=== PATIENT | male | born 1960 | race Caucasian/White ===

== ENCOUNTER 2016-11-01 16:06 | Emergency (ER) | payer SELFPAY ==
--- NOTE | 2016-11-01 19:19 | ED ORDER SUMMARY ---
..... Patient: ARGELIA FORD OrderSheet [facility] VisitID: [id number] [address] [place] [address] 56y, M Registration Date/Time: 11/01/2016 ORDER SHEET Weight: 83.9 kg (stated) Allergies: None GENERAL ORDERS: Topographical Drafter (Continuous) (Croup, Respiratory Distress) (16:20 11/01/2016 JBoardley R.N. per protocol) (16:20 JBoardley R.N.) Pulse oximeter (16:20 11/01/2016 JBoardley R.N. per protocol) (16:20 JBoardley R.N.) EKG - ER Stat (16:20 11/01/2016 JBoardley R.N. per protocol) (16:20 JBoardley R.N.) Vitals (16:20 11/01/2016 JBoardley R.N. per protocol) (16:20 JBoardley R.N.) Cardiac Panel Stat (16:31 11/01/2016 JBoardley R.N. per protocol) (Ack 16:32 NHouse ER Tech1) (16:36 JBoardley R.N.) BNP Urgent (16:31 11/01/2016 JBoardley R.N. per protocol) (Ack 16:32 NHouse ER Tech1) (16:36 JBoardley R.N.) MEDICATION ORDERS: IV FLUIDS: IV Saline Lock (16:20 11/01/2016 JBoardley R.N. per protocol) (Ack 16:20 JBoardley R.N.) (16:31 JBoardley R.N.) ORDER SHEET NOTES: [Electronically signed by Victoria Frazier R.N. (19:28 11/01/2016)] [Electronically signed by Coretta Mitchell MD (07:52 11/03/2016)] [Electronically locked/signed by Victoria Frazier R.N. (19:28 11/01/2016)]
--- NOTE | 2016-11-01 19:19 | ED CLINICAL REPORT ---
Clinical Report - Physicians/Mid Levels [facility] [address] [place] [address] 11/01/2016 16:07 [id number] Time Seen: 16:22. Arrived- By private vehicle. Historian- patient. HISTORY OF PRESENT ILLNESS Chief Complaint: DIZZINESS. Severity described as moderate at its maximum. When seen in the E.D., severity described as mild. Modifying factors- relieved by nothing. (Exertion does not worsen the symptoms.). Not worsened by anything. Not described as a sense of rotation, movement, falling or confusion. Not described as feeling off balance or weak all over. Described as feeling light-headed. This started several weeks ago and is still present. No nausea, vomiting, hearing loss, tinnitus or ear pain. (Patient states he's been feeling somewhat fatigued on and off for the last several weeks he has had occasional lightheaded spells and has had intermittent chest pressure separately from the spells. Patient states that symptoms seem worse over the last couple of days. The patient has a history of coronary artery disease and did have stents placed about a year and a half ago. Patient states that after the stents were placed, he felt much much better, and that things have gone smoothly since. Patient has just moved here from [place], and does not have a primary care physician yet. He is not currently having any chest discomfort, and feels slightly dizzy/lightheaded sitting in the bed. Patient states that his sense of feeling unwell was much worse prior to stents being placed.). (Patient has had no neurologic symptoms.). Similar symptoms previously: Worse. Recent medical care: Not recently seen/assessed. REVIEW OF SYSTEMS No headache, double vision, weakness, fainting episodes or head injury. No palpitations, numbness, fever, sore throat or cough. No difficulty breathing, abdominal pain, diarrhea, difficulty with urination or skin rash. No enlarged lymph nodes, chills or joint pain. No difficulty walking. The patient has had pressure-like, brief central chest pain. Has had similar symptoms of chest pain previously. No radiation, modifying factors or associated symptoms. All systems otherwise negative, except as recorded above. PAST HISTORY Problems: Congestive Heart Failure. Hypercholesterolemia. Hypertension. Additional Surgeries: Cardiac Stents. Medications: Plavix Oral. ASA. Atorvastatin Calcium Oral. Lisinopril Oral. Allergies: None. SOCIAL HISTORY Smoker- current status unknown. No alcohol use or drug use. ADDITIONAL NOTES The nursing notes have been reviewed. PHYSICAL EXAM Vital Signs: 11/01/2016 16:14 BP: 159/105. HR: 88. RR: 18. O2 saturation: 98%. Temp: 97.9 F. Pain level now: 0/10. Have been reviewed. Appearance: Alert. No acute distress. Eyes: Pupils equal, round and reactive to light. No nystagmus. Extraocular movements normal. ENT: Normal ENT inspection. Moist mucous membranes. Neck: Normal inspection. CVS: Normal heart rate and rhythm. Heart sounds normal. Pulses normal. Respiratory: No respiratory distress. Breath sounds normal. Abdomen: Soft and nontender. Back: Normal inspection. Skin: Skin warm and dry. Normal skin color. No rash. Normal skin turgor. Extremities: Extremities exhibit normal ROM. No lower extremity edema. Neuro: Alert. Mood/affect normal. Speech normal. Cranial nerves normal (as tested). No cerebellar findings. No motor deficit. (Patient is grossly oriented. He walks without difficulty, and is not ataxic in his movements.). LABS, X-RAYS, AND EKG EKG: EKG time: (1625). No acute process. No acute ischemia. Normal sinus rhythm. Rate: 87. Ectopic beats. Premature ventricular contractions. Normal P waves. Normal ALLA. Normal QRS complex. Normal axis. Normal ST and T waves. Prolonged QT. Prior EKG unavailable. The study has been interpreted contemporaneously by me. The study has been independently viewed by me. The EKG appears to be a good tracing. I agree with and confirm the computer reading of the EKG. Rhythm Strip #1: Time: (1621). Rate= 84. Normal sinus rhythm. Regular rhythm. Narrow QRS complexes. No ectopy. Conduction normal. Normal ST segments and T waves. The study was interpreted by me. Laboratory Tests: CBC w Diff: (VEDA: 11/01/2016 16:30) ( MsgRcvd 11/01/2016 17:05) Final results Test Result Flag Units (Reference) WHITE BLOOD COUNT 6.4 K/uL (4.5-11.5) RED BLOOD COUNT 5.14 M/uL (4.50-5.90) HEMOGLOBIN 15.8 gm/dL (13.5-17.5) HEMATOCRIT 46.7 % (41.0-53.0) MEAN CELL VOLUME 91 fL (80-100) MEAN CORPUSCULAR HGB 31 pg (26-34) MEAN CORPUSCULAR HGB CONC 34 g/dL (31-37) RED CELL DISTRIBUTION WIDTH 14.9 H % (11.6-14.8) PLATELET COUNT 249 K/uL (150-400) NEUTROPHIL % 51.3 % (50-75) LYMPH % 35.1 % (25-40) MONO % 7.9 % (3-14) EOSINOPHIL % 4.9 H % (0-4) BASOPHIL % 0.8 % (0-2) BNP: (VEDA: 11/01/2016 16:30) ( [facility] 11/01/2016 17:24) Final results Test Result Flag Units (Reference) B-TYPE NATRIURETIC PEPTIDE 52.8 pg/ml (5-100) CHEM 13 PANEL: (VEDA: 11/01/2016 16:30) ( [facility] 11/01/2016 17:22) Final results Test Result Flag Units (Reference) GLUCOSE 148 H mg/dL (70-110) BUN 17 mg/dL (7-18) CREATININE 1.1 mg/dL (0.6-1.3) Estimated GFR >60 mL/min Estimated GFR- >60 mL/min Note: Persistent reduction over 3 months in eGFR<60 mL/min/1.73 m2 defines CKD. Patients with eGFR values>=60 mL/min/1.73 m2 may also have CKD if evidence ofpersistent proteinuria. Additional information may be foundat www.[email or web address].org. SODIUM 138 mmol/L (136-145) POTASSIUM 4.2 mmol/L (3.5-5.1) CHLORIDE 104 mmol/L (98-107) CARBON DIOXIDE 24 mmol/L (21-32) CALCIUM 8.3 L mg/dL (8.5-10.1) TOTAL PROTEIN 7.4 g/dL (6.4-8.2) ALBUMIN 3.3 g/dL (3.3-5.0) BILIRUBIN, TOTAL 0.6 mg/dL (0.0-1.0) ALKALINE PHOSPHATASE 130 H U/L (46-116) AST (SGOT) 69 H U/L (15-37) ALT (SGPT) 102 H U/L (12-78) MAGNESIUM 1.9 mg/dL (1.8-2.4) CPK 104 U/L (24-260) TROPONIN I 0.08 ng/mL (0.00-1.5) TROPONIN REFERENCE RANGE:<0.1 NEGATIVE0.1-1.5 INDETERMINANT>1.5 POSITIVE . Pulse Oximetry: 11/01/2016 16:14 O2 saturation: 98%. (FIO2 - room air). Interpretation: normal. PROGRESS AND PROCEDURES Course of Care: Patient was worked up for his symptoms in the emergency department with EKG and laboratory studies. Workup was unremarkable. Patient was minimally symptomatic while actually in the emergency department, but I did discuss with him that it is very important that he establish care with a primary care physician and that he talk to them about getting scheduled for a stress test. We have discussed that if he develops chest pain or if his symptoms significantly worsen he should come to the emergency department again for further evaluation. I will give him a prescription for nitroglycerin which he may use as a trial to help determine if this may be anginal attacks. Patient counseled in person regarding the patient's stable condition, test results and diagnosis. Old medical records ordered. Old records unavailable. Disposition: Discharged. Condition: stable and improved. CLINICAL IMPRESSION Episodic dizziness Chest pain characterized as "pressure". INSTRUCTIONS Drink plenty of fluids. (Everything looks good today. However, you need to see a doctor for follow-up, to establish care and to schedule a stress test. If your discomfort worsens at all, please return to the emergency department for further evaluation.). Warnings: GENERAL WARNINGS: Return or contact your physician immediately if your condition worsens or changes unexpectedly, if not improving as expected, or if other problems arise. Your Current Medications: CONTINUE TAKING THE FOLLOWING MEDICATIONS: ASA*. Atorvastatin Calcium Oral. Lisinopril Oral. Plavix Oral. Prescription Medications: Nitrostat 0.4 mg: dissolve 1 tab under tongue every 5 minutes as needed for chest pain. Dispense one (1) bottle. No refills. Substitution is permissible. OTC Medications: Aspirin 325 mg (available over the counter): take 1 orally every 24 hours. Dispense thirty (30). No refills. Understanding of the discharge instructions verbalized by patient. Follow-up with: [facility], , , [address], , [place], [address] Follow up tomorrow. Call for an appointment. Reason for referral: Establish care, schedule stress test. (Electronically signed by Coretta Mitchell MD 11/03/2016 7:52)
--- NOTE | 2016-11-01 19:19 | ED NURSING NOTES ---
Clinical Report - Nurses [facility] [address] [place] [address] 11/01/2016 16:07 Patient: ARGELIA FORD TRIAGE Triage time 16:14. Acuity: LEVEL 3. Chief Complaint: "FELT STRANGE". 16:19 11/01/16. 16:11/01/16. Alert. No acute distress. ( Pts states he is feeling dizzy. Pt states he has HTN and cardiac stents.). SEPSIS SCREEN: Sepsis Screen. Negative (no infection suspected/documented). CHAPARRO COMA SCORE: Chaparro Coma Scale: 15- eyes open spontaneously (4); best verbal response- oriented x 4 (5); best motor response- obeys commands (6). --16:19 Rolo Payne R.N. 16:14 11/01/16. BP: 159/105. HR: 88. RR: 18. O2 saturation: 98% on room air. Temp: 97.9 F (oral). Pain level now: 0/10. --16:19 Rolo Payne R.N. Weight: 83.9 kg stated. Height/Length: 70 inches Per Patient. BMI: 26.5. --16:14 Rolo Payne R.N. Medications Lisinopril Oral. --16:16 Rolo Payne R.N. Atorvastatin Calcium Oral. --16:17 Rolo Payne R.N. ASA. --16:17 Rolo Payne R.N. Plavix Oral. --16:17 Rolo Payne R.N. Medication/allergy information source: the patient. --16:19 Rolo Payne R.N. Allergies None. --16:18 Rolo Payne R.N. History Arrived by private vehicle. Historian: patient. Unaccompanied. Primary physician ( is in [place]). 16:19 11/01/16. This started 2 days ago. Treatment COMMISSIONER PUBLIC WORKS: None. PAST MEDICAL HX: Immunizations: up-to-date. SOCIAL HX: Current every day light tobacco smoker (cigarette)- less than 1/2 a pack per day. No alcohol use or drug use. No infectious disease exposure. ABUSE ASSESSMENT: No report of abuse. FALL RISK ASSESSMENT: Fall risk assessment completed. No fall risk identified. NUTRITIONAL RISK ASSESSMENT: The nutritional risk assessment revealed no deficiencies. FUNCTIONAL ASSESSMENT: Functional assessment: no impairments noted. LEARNING NEEDS ASSESSMENT: The learning needs assessment revealed no barriers. SKIN INTEGRITY ASSESSMENT: Skin integrity risk assessment completed. No skin integrity risk identified. --16:19 Rolo Payne R.N. PROBLEMS: Congestive Heart Failure. Hypercholesterolemia. Hypertension. --16:19 Rolo Payne R.N. ADDITIONAL SURGERIES: Cardiac Stents. --16:19 Rool Payne R.N. Assessment 16:11/01/16. --16:19 Rolo Payne R.N. Interventions 16:19 11/01/16. 16:11/01/16. ID and allergy band on patient. To treatment room. --16:19 Rolo Payne R.N. PHYSICAL ASSESSMENT 16:11/01/16. Ambulatory to room. GENERAL / NEURO / PSYCH: Awake. Alert. Appears in no acute distress. Moves all extremities equally. HEENT: No facial asymmetry noted. RESPIRATORY: Respirations not labored. CVS: Normal sinus rhythm noted. Capillary refill less than 2 seconds. SKIN: Skin is warm and dry. --16:19 Rolo Payne R.N. NURSING PROGRESS NOTES 16:11/01/16. The plan of care for this patient has been created. register repairer, pulse oximeter and NIBP monitor placed on patient; monitor alarms on. Head of bed elevated. Two patient identifiers checked. Call light placed in reach. Side rails up x 2. Bed placed in lowest position. Brakes of bed on. --16:19 Rolo Payne R.N. 16:11/01/16. Patient ready for evaluation- chart flagged and ED physician notified. --16:19 Rolo Payne R.N. 16:20 11/01/16. Cardiac rhythm: normal sinus rhythm; unifocal PVCs. --16:20 Rolo Payne R.N. 16:24 11/01/16. EKG time: (1625 PM). EKG was ordered, performed by a tech and shown to the ED physician. --16:24 Rolo Payne R.N. 16:31 11/01/2016 Site #1 started via IV in the right antecubital space with an 20g angiocath, with aseptic technique and good blood return; one attempt. Blood drawn: rainbow set. Labeled in the presence of the patient and sent to the lab. Saline lock flushed with 10 mL saline. --16:31 Rolo Payne R.N. 17:12 11/01/16. Cardiac rhythm: normal sinus rhythm; occasional unifocal PVCs (79). --17:12 Rolo Payne R.N. 17:11 11/01/16. BP: 151/111. HR: 79. O2 saturation: 97% on room air. --17:12 Rolo Payne R.N. 18:22 11/01/16. Cardiac rhythm: normal sinus rhythm. --18:22 Rolo Payne R.N. 18:22 11/01/16. BP: 139/107. HR: 82. RR: 16. O2 saturation: 97% on room air. --18:22 Rolo Payne R.N. 18:28 11/01/16. Patient informed about reason for wait and about plan of care. --18:28 Rolo Payne R.N. 19:09 11/01/16. Care transferred and report given. --19:09 Rolo Payne R.N. DISPOSITION / DISCHARGE <<STRICKEN ENTRY-- 17:45 11/01/16. BP: 124/73. HR: 81. RR: 14. O2 saturation: 99% on room air. Temp: 98.1 F (oral). --17:47 Rolo Payne R.N. --END STRIKE>> Wrong Value. --17:47 Rolo Payne R.N. <<STRICKEN ENTRY-- 17:47 11/01/16. Condition at departure: improved. The goals identified in the patient's plan of care were met. No learning barriers present. Discharge instructions provided and reviewed with the patient. Reviewed warnings. Reviewed medication(s). Treatments reviewed. Patient verbalized understanding. Written instructions provided in [place]. The patient was discharged by the physician. He was discharged home and accompanied by family. He left the Emergency Department ambulatory and via private vehicle. Family member driving. FALL RISK ASSESSMENT: Fall risk assessment completed. No fall risk identified. --17:47 Rolo Payne R.N. --END STRIKE>> Charted On Wrong Patient --:47 Rolo Payne R.N. 17:47 11/01/2016 Site #1 removed upon discharge. Catheter intact. --17:47 Rolo Payne R.N. Departure time: 19:26. Condition at departure: improved. No learning barriers present. Discharge instructions provided and reviewed with the patient. Reviewed medication(s) side effects, precautions, dosing and course information. Prescription(s) given to the patient. Reviewed referral to the public health department. Patient verbalized understanding. Written instructions provided in [place]. No warning instructions, treatment instructions, diet instructions, activity restrictions or note given. No follow up contact number given or stop smoking instructions. The patient was discharged by the physician. He was discharged home and accompanied by pump service supervisor. He left the Emergency Department ambulatory and via private vehicle. Federal Air Marshal driving. FALL RISK ASSESSMENT: Fall risk assessment completed. No fall risk identified. --19:27 Janell Bustamante 19:25 11/01/16. BP: 133/82. HR: 83. RR: 16. O2 saturation: 97%. Temp: deferred. Pain level now: 0/10. --19:27 Janell Bustamante Locked/Released at 11/01/2016 19:28 by Janell Bustamante
--- NOTE | 2016-11-01 19:19 | ED ORDER SUMMARY ---
..... Patient: ARGELIA FORD OrderSheet [facility] VisitID: [id number] [address] [place] [address] 56y, M Registration Date/Time: 11/01/2016 ORDER SHEET Weight: 83.9 kg (stated) Allergies: None GENERAL ORDERS: Wire Mesh Knitter (Continuous) (Croup, Respiratory Distress) (16:20 11/01/2016 JBoardley R.N. per protocol) (16:20 JBoardley R.N.) Pulse oximeter (16:20 11/01/2016 JBoardley R.N. per protocol) (16:20 JBoardley R.N.) EKG - ER Stat (16:20 11/01/2016 JBoardley R.N. per protocol) (16:20 JBoardley R.N.) Vitals (16:20 11/01/2016 JBoardley R.N. per protocol) (16:20 JBoardley R.N.) Cardiac Panel Stat (16:31 11/01/2016 JBoardley R.N. per protocol) (Ack 16:32 NHouse ER Tech1) (16:36 JBoardley R.N.) BNP Urgent (16:31 11/01/2016 JBoardley R.N. per protocol) (Ack 16:32 NHouse ER Tech1) (16:36 JBoardley R.N.) MEDICATION ORDERS: IV FLUIDS: IV Saline Lock (16:20 11/01/2016 JBoardley R.N. per protocol) (Ack 16:20 JBoardley R.N.) (16:31 JBoardley R.N.) ORDER SHEET NOTES: [Electronically signed by Victoria Frazier R.N. (19:28 11/01/2016)] [Electronically signed by Coretta Mitchell MD (07:52 11/03/2016)] [Electronically locked/signed by Victoria Frazier R.N. (19:28 11/01/2016)]
--- NOTE | 2016-11-01 19:19 | ED NURSING NOTES ---
Clinical Report - Nurses [facility] [address] [place] [address] 11/01/2016 16:07 Patient: ARGELIA FORD TRIAGE Triage time 16:14. Acuity: LEVEL 3. Chief Complaint: "FELT STRANGE". 16:19 11/01/16. 16:11/01/16. Alert. No acute distress. ( Pts states he is feeling dizzy. Pt states he has HTN and cardiac stents.). SEPSIS SCREEN: Sepsis Screen. Negative (no infection suspected/documented). CHAPARRO COMA SCORE: Chaparro Coma Scale: 15- eyes open spontaneously (4); best verbal response- oriented x 4 (5); best motor response- obeys commands (6). --16:19 Rolo Payne R.N. 16:14 11/01/16. BP: 159/105. HR: 88. RR: 18. O2 saturation: 98% on room air. Temp: 97.9 F (oral). Pain level now: 0/10. --16:19 Rolo Payne R.N. Weight: 83.9 kg stated. Height/Length: 70 inches Per Patient. BMI: 26.5. --16:14 Rolo Payne R.N. Medications Lisinopril Oral. --16:16 Rolo Payne R.N. Atorvastatin Calcium Oral. --16:17 Rolo Payne R.N. ASA. --16:17 Rolo Payne R.N. Plavix Oral. --16:17 Rolo Payne R.N. Medication/allergy information source: the patient. --16:19 Rolo Payne R.N. Allergies None. --16:18 Rolo Payne R.N. History Arrived by private vehicle. Historian: patient. Unaccompanied. Primary physician ( is in [place]). 16:19 11/01/16. This started 2 days ago. Treatment SUCTION OPERATOR: None. PAST MEDICAL HX: Immunizations: up-to-date. SOCIAL HX: Current every day light tobacco smoker (cigarette)- less than 1/2 a pack per day. No alcohol use or drug use. No infectious disease exposure. ABUSE ASSESSMENT: No report of abuse. FALL RISK ASSESSMENT: Fall risk assessment completed. No fall risk identified. NUTRITIONAL RISK ASSESSMENT: The nutritional risk assessment revealed no deficiencies. FUNCTIONAL ASSESSMENT: Functional assessment: no impairments noted. LEARNING NEEDS ASSESSMENT: The learning needs assessment revealed no barriers. SKIN INTEGRITY ASSESSMENT: Skin integrity risk assessment completed. No skin integrity risk identified. --16:19 Rolo Payne R.N. PROBLEMS: Congestive Heart Failure. Hypercholesterolemia. Hypertension. --16:19 Rolo Payne R.N. ADDITIONAL SURGERIES: Cardiac Stents. --16:19 Rolo Payne R.N. Assessment 16:11/01/16. --16:19 Rolo Payne R.N. Interventions 16:19 11/01/16. 16:11/01/16. ID and allergy band on patient. To treatment room. --16:19 Rolo Payne R.N. PHYSICAL ASSESSMENT 16:11/01/16. Ambulatory to room. GENERAL / NEURO / PSYCH: Awake. Alert. Appears in no acute distress. Moves all extremities equally. HEENT: No facial asymmetry noted. RESPIRATORY: Respirations not labored. CVS: Normal sinus rhythm noted. Capillary refill less than 2 seconds. SKIN: Skin is warm and dry. --16:19 Rolo Payne R.N. NURSING PROGRESS NOTES 16:11/01/16. The plan of care for this patient has been created. lifeguard, pulse oximeter and NIBP monitor placed on patient; monitor alarms on. Head of bed elevated. Two patient identifiers checked. Call light placed in reach. Side rails up x 2. Bed placed in lowest position. Brakes of bed on. --16:19 Rolo Payne R.N. 16:11/01/16. Patient ready for evaluation- chart flagged and ED physician notified. --16:19 Rolo Payne R.N. 16:20 11/01/16. Cardiac rhythm: normal sinus rhythm; unifocal PVCs. --16:20 Rolo Payne R.N. 16:24 11/01/16. EKG time: (1625 PM). EKG was ordered, performed by a tech and shown to the ED physician. --16:24 Rolo Payne R.N. 16:31 11/01/2016 Site #1 started via IV in the right antecubital space with an 20g angiocath, with aseptic technique and good blood return; one attempt. Blood drawn: rainbow set. Labeled in the presence of the patient and sent to the lab. Saline lock flushed with 10 mL saline. --16:31 Rolo Payne R.N. 17:12 11/01/16. Cardiac rhythm: normal sinus rhythm; occasional unifocal PVCs (79). --17:12 Rolo Payne R.N. 17:11 11/01/16. BP: 151/111. HR: 79. O2 saturation: 97% on room air. --17:12 Rolo Payne R.N. 18:22 11/01/16. Cardiac rhythm: normal sinus rhythm. --18:22 Rolo Payne R.N. 18:22 11/01/16. BP: 139/107. HR: 82. RR: 16. O2 saturation: 97% on room air. --18:22 Rolo Payne R.N. 18:28 11/01/16. Patient informed about reason for wait and about plan of care. --18:28 Rolo Payne R.N. 19:09 11/01/16. Care transferred and report given. --19:09 Rolo Payne R.N. DISPOSITION / DISCHARGE <<STRICKEN ENTRY-- 17:45 11/01/16. BP: 124/73. HR: 81. RR: 14. O2 saturation: 99% on room air. Temp: 98.1 F (oral). --17:47 Rolo Payne R.N. --END STRIKE>> Wrong Value. --17:47 Rolo Payne R.N. <<STRICKEN ENTRY-- 17:47 11/01/16. Condition at departure: improved. The goals identified in the patient's plan of care were met. No learning barriers present. Discharge instructions provided and reviewed with the patient. Reviewed warnings. Reviewed medication(s). Treatments reviewed. Patient verbalized understanding. Written instructions provided in [place]. The patient was discharged by the physician. He was discharged home and accompanied by family. He left the Emergency Department ambulatory and via private vehicle. Family member driving. FALL RISK ASSESSMENT: Fall risk assessment completed. No fall risk identified. --17:47 Rolo Payne R.N. --END STRIKE>> Charted On Wrong Patient --:47 Rolo Payne R.N. 17:47 11/01/2016 Site #1 removed upon discharge. Catheter intact. --17:47 Rolo Payne R.N. Departure time: 19:26. Condition at departure: improved. No learning barriers present. Discharge instructions provided and reviewed with the patient. Reviewed medication(s) side effects, precautions, dosing and course information. Prescription(s) given to the patient. Reviewed referral to the public health department. Patient verbalized understanding. Written instructions provided in [place]. No warning instructions, treatment instructions, diet instructions, activity restrictions or note given. No follow up contact number given or stop smoking instructions. The patient was discharged by the physician. He was discharged home and accompanied by long chain dyeing machine operator. He left the Emergency Department ambulatory and via private vehicle. Bulk Intake Worker driving. FALL RISK ASSESSMENT: Fall risk assessment completed. No fall risk identified. --19:27 Janell Bustamante 19:25 11/01/16. BP: 133/82. HR: 83. RR: 16. O2 saturation: 97%. Temp: deferred. Pain level now: 0/10. --19:27 Janell Bustamante Locked/Released at 11/01/2016 19:28 by Janell Bustamante
--- NOTE | 2016-11-03 07:52 | ED MAR SUMMARY ---
..... Medication Administration Record [facility] [address], [place] [id number] Patient: ARGELIA FORD Visit ID: [id number] 56y, M Weight: 83.9 kg Height/Length: 70 in BMI: 26.5 ALLERGIES: None
--- NOTE | 2016-11-03 07:52 | ED MAR SUMMARY ---
..... Medication Administration Record [facility] [address] [place], [place] [id number] Patient: ARGELIA FORD Visit ID: [id number] 56y, M Weight: 83.9 kg Height/Length: 70 in BMI: 26.5 ALLERGIES: None
--- NOTE | 2016-11-03 07:52 | ED MED RECONCILIATION SUMMARY ---
Patient: ARGELIA FORD Medication Reconciliation Report [facility] VisitID: [id number] [address] [place] [address] 56y, M Registration Date/Time: 11/01/2016 Weight: 83.9 kg Height/Length: 70 in. BMI: 26.5 ALLERGIES: None The patient's Home Medications are listed below: CONTINUE TAKING THE FOLLOWING MEDICATIONS: ASA Atorvastatin Calcium Oral Lisinopril Oral Plavix Oral The source(s) of the original Home Medication information: patient The following Medications were given to the patient in the Emergency Department: None. The following Medications were prescribed to the patient: Aspirin 325 mg (available over the counter): take 1 orally every 24 hours. Dispense thirty (30). No refills. -- Coretta Mitchell MD Nitrostat 0.4 mg: dissolve 1 tab under tongue every 5 minutes as needed for chest pain. Dispense one (1) bottle. No refills. Substitution is permissible. -- Coretta Mitchell MD
--- NOTE | 2016-11-03 07:52 | ED MED RECONCILIATION SUMMARY ---
Patient: ARGELIA FORD Medication Reconciliation Report [facility] VisitID: [id number] [address] [place] [address] 56y, M Registration Date/Time: 11/01/2016 Weight: 83.9 kg Height/Length: 70 in. BMI: 26.5 ALLERGIES: None The patient's Home Medications are listed below: CONTINUE TAKING THE FOLLOWING MEDICATIONS: ASA Atorvastatin Calcium Oral Lisinopril Oral Plavix Oral The source(s) of the original Home Medication information: patient The following Medications were given to the patient in the Emergency Department: None. The following Medications were prescribed to the patient: Aspirin 325 mg (available over the counter): take 1 orally every 24 hours. Dispense thirty (30). No refills. -- Coretta Mitchell MD Nitrostat 0.4 mg: dissolve 1 tab under tongue every 5 minutes as needed for chest pain. Dispense one (1) bottle. No refills. Substitution is permissible. -- Coretta Mitchell MD
--- NOTE | 2016-11-03 07:52 | ED DISCHARGE INSTRUCTIONS ---
Patient: ARGELIA FORD General Instructions [facility] VisitID: [id number] [address] [place] [address] 56y, M Registration Date/Time: 11/01/2016 Episodic dizziness Chest pain characterized as "pressure". INSTRUCTIONS Drink plenty of fluids. (Everything looks good today. However, you need to see a doctor for follow-up, to establish care and to schedule a stress test. If your discomfort worsens at all, please return to the emergency department for further evaluation.). Warnings: GENERAL WARNINGS: Return or contact your physician immediately if your condition worsens or changes unexpectedly, if not improving as expected, or if other problems arise. Your Current Medications: CONTINUE TAKING THE FOLLOWING MEDICATIONS: ASA*. Atorvastatin Calcium Oral. Lisinopril Oral. Plavix Oral. Prescription Medications: Nitrostat 0.4 mg: dissolve 1 tab under tongue every 5 minutes as needed for chest pain. Dispense one (1) bottle. No refills. Substitution is permissible. OTC Medications: Aspirin 325 mg (available over the counter): take 1 orally every 24 hours. Dispense thirty (30). No refills. Understanding of the discharge instructions verbalized by patient. Follow-up with: [facility], , , [address], [place], [address] Follow up tomorrow. Call for an appointment. Reason for referral: Establish care, schedule stress test. ADDITIONAL INFORMATION Dizziness [Uncertain Cause] Dizziness is a common symptom sometimes described as "lightheadedness" or feeling like you are going to faint. If it lasts for only a few seconds and is related to changes in position (such as getting up after lying or sitting for a long time), it is usually not a sign of anything serious. Dizziness that lasts for minutes to hours, or comes on for no apparent reason, may be a sign of a more serious problem (such as dehydration, a medicine reaction, disease of the heart or brain). Today's exam did not show an exact cause for your dizzy spell . Sometimes additional tests are required before a cause can be found. Therefore, it is important to follow up with your doctor if your symptoms continue. Home Care: 1) If a dizzy spell occurs and lasts more than a few seconds, lie down until it passes. If you are lying down, then you cannot hurt yourself by falling if you do faint. 2) Do not drive or operate dangerous equipment until the dizzy spells have stopped for at least 48 hours. 3) If dizzy spells occur with sudden standing, this may be a sign of mild dehydration. Drink extra fluids over the next few days. 4) If you recently started a new medicine or if you had the dose of a current medicine increased (especially blood pressure medicine), talk with the prescribing doctor about your symptoms. Dose adjustments may be needed. Follow Up with your doctor for further evaluation within the next seven days, if your symptoms continue. Get Prompt Medical Attention if any of the following occur: -- Worsening of your symptoms -- Fainting, headache or seizure -- Repeated vomiting -- Feeling like you or the room is spinning -- Chest, arm, neck, back or jaw pain -- Palpitations (the sense that your heart is fluttering or beating fast or hard) -- Shortness of breath -- Blood in vomit or stool (black or red color) -- Weakness of an arm or leg or one side of the face -- Difficulty with speech or vision Chest Pain, Uncertain Cause Chest pain can happen for a number of reasons. Sometimes the cause can not be determined. If yourcondition does not seem serious, and your pain does not appear to be coming from your heart, your doctor may recommend watching it closely. Sometimes the signs of a serious problem take more time to appear. Therefore, watch for the warning signs listed below. Home care After your visit, follow these recommendations: Rest today and avoid strenuous activity. Take any prescribed medicine as directed. Follow-up care Follow up with your doctor or this facility as instructed or if you do not start to feel better within 24 hours. Call 911 Get immediate medical attention if any of the following occur: A change in the type of pain: if it feels different, becomes more severe, lasts longer, or begins to spread into your shoulder, arm, neck, jaw or back Shortness of breath or increased pain with breathing Weakness, dizziness, or fainting Rapid heart beat Get prompt medical attention Call your doctor right away if any of the following occur: Cough with dark colored sputum (phlegm) or blood Fever of 100.4F(38C) or higher, or as directed by your health care provider Swelling, pain or redness in one leg You have been given the following additional information: Dizziness, Unk Cause Chest Pain, Uncertain Cause (Electronically signed by Coretta Mitchell MD 11/03/2016 7:52)
== END 2016-11-01 19:21 | disposition home or self-care (01) ==
LOC: ED SRH 16:06
DX: R42 Dizziness and giddiness (principal); R07.89 Other chest pain; I50.9 Heart failure, unspecified; I11.0 Hypertensive heart disease with heart failure; E78.00 Pure hypercholesterolemia, unspecified; Z95.5 Presence of coronary angioplasty implant and graft; Z79.899 Other long term (current) drug therapy; Z79.82 Long term (current) use of aspirin; Z72.0 Tobacco use
CPT/HCPCS: 90100; 90616; 91320; 92610; 92720; 95059